=== PATIENT | male | born 1950 | race Two or more races ===

== ENCOUNTER 2025-02-17 17:58 | Inpatient (IN) | payer OTHER ==
[~2025-02-17] VITALS: Ht 170.2 cm; Wt 70.3 kg
[2025-02-17] MEDS ORDERED: ADULT LOW DOSE81 M1 PO (18:18)
[2025-02-17] MEDS ORDERED: SIMVASTATIN5 MG PO (18:19)
[2025-02-17] MEDS ORDERED: OXYBUTYNIN CHLOR5 MG PO (18:19)
[2025-02-17] MEDS ORDERED: HYZAAR 100-12.1 EACH PO (18:19)
[2025-02-17] MEDS ORDERED: GABAPENTIN600 MG PO (18:19)
[2025-02-17 19:31] LABS: BASO % 0.3 % (0.1-1.2); EOS # 0.32 (0.04-0.54); EOS % 3.3 % (0.7-7.0); LYMPH # 2.39 (1.18-3.74); LYMPH % 24.8 % (19.3-53.1); MEAN PLATELET VOLUME 9.50 fl (9.4-12.4); MONO # 0.98 (0.24-0.82); MONO % 10.2 % (4.7-12.5); NEUT # 5.88 (1.56-6.13); NEUT % 61.0 % (34.0-71.1); RED CELL DISTRIBUTION WIDTH 13.3 % (11.6-14.4)
[2025-02-17 19:40] LABS: URINE APPEARANCE Clear; URINE BILIRRUBIN Negative (NEGATIVE); URINE BLOOD Trace; URINE COLOR Yellow; URINE GLUCOSE Negative (NEGATIVE); URINE KETONE Negative (NEGATIVE); URINE LEUKOCYTE Moderate; URINE NITRATE Negative; URINE PROTEIN Negative (NEGATIVE); URINE UROBILINOGEN 0.2 E.U./dl
[2025-02-17 19:43] LABS: URINE BACTERIA 22.7 uL (0.0-1933); URINE EPITHELIAL CELLS 5.2 uL (0.0-38.8); URINE RBC 5.4 uL (0.0-20.8); URINE WBC 85.6 uL (0.0-23.2)
[2025-02-17 19:47] LABS: INR 1.0
[2025-02-17 19:50] LABS: URINE CAST 0.00 uL (0.0-1.40)
[2025-02-17 19:53] LABS: ALT/SGPT 14.0 U/L (12-78); AST/SGOT 11.0 U/L (15-37); BILIRUBIN TOTAL 0.35 mg/dL (0.3-1.2); BUN CREA RATIO 12.0 (7.0-25.0); CREATININE SERUM 1.19 mg/dL (0.70-1.30); GFR 59.59; GLOBULINA 3.5 G/DL (2.4-3.5); GLUCOSE FASTING 84.0 mg/dL (65-100); OSMOLALITY SERUM 287.0 MOSM/KG (275-295)
[2025-02-17] MEDS ORDERED: FAMOTIDINE/PF 20 MG in 0.9 % SODIUM CHLORIDE 8 ML IV PUSH SCH (21:11)
[2025-02-17] MEDS ORDERED: CEFTRIAXONE SODIUM 2,000 MG in 0.9 % SODIUM CHLORIDE 100 ML IV SCH (21:11)
[2025-02-17] MEDS ORDERED: MORPHINE SULFATE 4 MG/ML CARTRIDGE IV PRN (21:15)
[2025-02-17] MEDS ORDERED: ONDANSETRON HCL 4 MG in 0.9 % SODIUM CHLORIDE 50 ML IV PRN (21:15)
[2025-02-17] MEDS ORDERED: 0.9 % SODIUM CHLORIDE 1,000 ML IV SCH (21:15)
[2025-02-17 23:40] VITALS: BP 130/72; O2SAT 96
[2025-02-18 04:30] VITALS: BP 145/71; O2SAT 94
[2025-02-18] MEDS ORDERED: LOSARTAN/HYDROCHLOROTHIAZIDE 1 TAB TABLET PO SCH (09:00)
[2025-02-18 09:25] VITALS: BP 122/70; O2SAT 94
[2025-02-18 16:44] VITALS: BP 132/63; O2SAT 92
[2025-02-19 02:23] VITALS: BP 117/67; O2SAT 91
[2025-02-19 07:30] VITALS: BP 127/69; O2SAT 95
[2025-02-19 07:38] LABS: ALT/SGPT 11.0 U/L (12-78); AST/SGOT 13.0 U/L (15-37); BILIRUBIN TOTAL 0.37 mg/dL (0.3-1.2); BUN CREA RATIO 13.0 (7.0-25.0); CREATININE SERUM 1.07 mg/dL (0.70-1.30); GFR 67.37; GLOBULINA 3.0 G/DL (2.4-3.5); GLUCOSE FASTING 65.0 mg/dL (65-100); OSMOLALITY SERUM 284.0 MOSM/KG (275-295)
[2025-02-19 08:14] LABS: BASO % 0.6 % (0.1-1.2); EOS # 0.51 (0.04-0.54); EOS % 5.7 % (0.7-7.0); LYMPH # 1.40 (1.18-3.74); LYMPH % 15.6 % (19.3-53.1); MEAN PLATELET VOLUME 10.40 fl (9.4-12.4); MONO # 0.93 (0.24-0.82); MONO % 10.4 % (4.7-12.5); NEUT # 6.05 (1.56-6.13); NEUT % 67.5 % (34.0-71.1); RED CELL DISTRIBUTION WIDTH 13.0 % (11.6-14.4)
[2025-02-19] MEDS ORDERED: SODIUM CHLORIDE 0.45 % 1,000 ML IV SCH (16:00)
[2025-02-19 17:15] LABS: ob POSITIVE (NEGATIVE)
[2025-02-19 17:41] VITALS: BP 154/88
[2025-02-20 00:53] VITALS: BP 119/70; O2SAT 92
[2025-02-20 07:30] VITALS: BP 131/563
[2025-02-20 17:55] VITALS: BP 121/66
[2025-02-21 01:13] VITALS: BP 128/66; O2SAT 92
[2025-02-21 08:14] VITALS: BP 109/51; O2SAT 97
[2025-02-21 17:14] VITALS: BP 132/65
[2025-02-22 00:22] VITALS: BP 130/65
[2025-02-22 09:19] VITALS: BP 123/50; O2SAT 98
[2025-02-22 16:38] VITALS: BP 132/60
[2025-02-22] MEDS ORDERED: POLYETHYLENE GLYCOL 3350 238 GM POWDER PO ONE (21:00)
[2025-02-23 02:07] VITALS: BP 160/68
[2025-02-23 09:10] VITALS: BP 141/64; O2SAT 98
[2025-02-23] MEDS ORDERED: fentaNYL CITRATE 50 MCG/ML AMPUL IV PUSH ONE (13:30)
[2025-02-23] MEDS ORDERED: DIPHENHYDRAMINE HCL 50 MG/ML VIAL 1ML IV NR (13:30)
[2025-02-23] MEDS ORDERED: MIDAZOLAM HCL 2 MG/2 ML VIAL IV ONE (13:30)
[2025-02-23 16:10] VITALS: BP 165/75
[2025-02-24 01:00] VITALS: BP 129/64; O2SAT 94
[2025-02-24 08:13] VITALS: BP 146/67
[2025-02-24 17:01] VITALS: BP 139/59
[2025-02-25 01:04] VITALS: BP 121/55
[2025-02-25 08:30] VITALS: BP 139/69; BP 146/77; O2SAT 97
[2025-02-25 19:33] VITALS: BP 155/72; O2SAT 97
[2025-02-26 01:26] VITALS: BP 147/66; O2SAT 97
[2025-02-26 07:43] LABS: BASO % 0.6 % (0.1-1.2); EOS # 0.74 (0.04-0.54); EOS % 9.1 % (0.7-7.0); LYMPH # 3.33 (1.18-3.74); LYMPH % 40.8 % (19.3-53.1); MEAN PLATELET VOLUME 10.80 fl (9.4-12.4); MONO # 0.76 (0.24-0.82); MONO % 9.3 % (4.7-12.5); NEUT # 3.26 (1.56-6.13); NEUT % 39.8 % (34.0-71.1); RED CELL DISTRIBUTION WIDTH 12.9 % (11.6-14.4)
[2025-02-26 07:45] LABS: BUN CREA RATIO 8.0 (7.0-25.0); CREATININE SERUM 1.06 mg/dL (0.70-1.30); GFR 68.11; GLUCOSE FASTING 76.0 mg/dL (65-100); OSMOLALITY SERUM 286.0 MOSM/KG (275-295)
[2025-02-26 08:53] VITALS: BP 140/75; O2SAT 97
== END 2025-02-26 14:53 | disposition home or self-care (01) | DRG 690 ==
LOC: ER 18:43 → SEC-K 21:58 → MEDI 21:58
PROVIDERS: General Practice; Internal Medicine; Internal Medicine Infectious Disease; ADMIT Internal Medicine; ATTEND Internal Medicine
PROC: BW21YZZ Computerized Tomography (CT Scan) of Abdomen and Pelvis using Other Contrast (ICD-10-PCS; 2025-02-19)
PROC: BB24YZZ Computerized Tomography (CT Scan) of Bilateral Lungs using Other Contrast (ICD-10-PCS; 2025-02-19)
PROC: 0DBP8ZX Excision of Rectum, Via Natural or Artificial Opening Endoscopic, Diagnostic (ICD-10-PCS; principal; 2025-02-23)
DX: N39.0 Urinary tract infection, site not specified (principal); C18.9 Malignant neoplasm of colon, unspecified; N41.9 Inflammatory disease of prostate, unspecified; K63.5 Polyp of colon; I10 Essential (primary) hypertension; E78.5 Hyperlipidemia, unspecified; K59.09 Other constipation